=== PATIENT | female | born 1970 | race Caucasian/White ===

== ENCOUNTER → 2021-11-30 | Day surgery (SDC) | payer BC ==
[~2021-11-30] VITALS: Ht 162.6 cm; Wt 52.2 kg
[~2021-11-30] MED LIST: COQ-1030 M1 PO; FERROUS SULF325 M3 PO; TRIMETHOPRIM100 MG PO; VITAMIN B-12500 MCG PO; VITAMIN D1000 UNIT PO; ZINC50 MG PO; [UNRECOGNIZED DRUG - OTHER] PO
[2021-11-30 09:47] VITALS: BP 138/89
== END | disposition home or self-care (01) | DRG 376 ==
LOC: ENDO 07:10 → ORM 08:00 → ENDO 09:20
PROVIDERS: ATTEND Internal Medicine Gastroenterology
PROC: 0DBK8ZX Excision of Ascending Colon, Via Natural or Artificial Opening Endoscopic, Diagnostic (ICD-10-PCS; principal; 2021-11-30)
PROC: 3E0H8KZ Introduction of Other Diagnostic Substance into Lower GI, Via Natural or Artificial Opening Endoscopic (ICD-10-PCS; 2021-11-30)
PROC: 0DJ08ZZ Inspection of Upper Intestinal Tract, Via Natural or Artificial Opening Endoscopic (ICD-10-PCS; 2021-11-30)
DX: C18.2 Malignant neoplasm of ascending colon (principal); D50.9 Iron deficiency anemia, unspecified; K64.8 Other hemorrhoids

== ENCOUNTER 2022-11-08 06:49 | Day surgery (SDC) | payer BC ==
[~2022-11-08] VITALS: Ht 160 cm; Wt 49.9 kg
[~2022-11-08 06:49] MED LIST changes: +ALLERGY RE50 MCG/ACT; +FLEXERIL5 M1 PO; +[UNRECOGNIZED DRUG - OTHER] PO
[2022-11-08 09:33] VITALS: BP 133/82
== END 2022-11-08 09:24 | disposition home or self-care (01) | DRG 951 ==
LOC: ORM 06:49
PROVIDERS: ATTEND Internal Medicine Gastroenterology
PROC: 0DJD8ZZ Inspection of Lower Intestinal Tract, Via Natural or Artificial Opening Endoscopic (ICD-10-PCS; principal; 2022-11-08)
PROC: 0DB98ZX Excision of Duodenum, Via Natural or Artificial Opening Endoscopic, Diagnostic (ICD-10-PCS; 2022-11-08)
PROC: 0DB78ZX Excision of Stomach, Pylorus, Via Natural or Artificial Opening Endoscopic, Diagnostic (ICD-10-PCS; 2022-11-08)
DX: Z12.11 Encounter for screening for malignant neoplasm of colon (principal); K57.30 Diverticulosis of large intestine without perforation or abscess without bleeding; K64.8 Other hemorrhoids; R10.13 Epigastric pain; R11.0 Nausea; K29.70 Gastritis, unspecified, without bleeding; K44.9 Diaphragmatic hernia without obstruction or gangrene; K31.9 Disease of stomach and duodenum, unspecified; K29.80 Duodenitis without bleeding; K25.9 Gastric ulcer, unspecified as acute or chronic, without hemorrhage or perforation; Z85.038 Personal history of other malignant neoplasm of large intestine; Z90.49 Acquired absence of other specified parts of digestive tract